=== PATIENT | male | born 1960 | race Caucasian/White ===

== ENCOUNTER 2022-06-18 15:15 | Inpatient (IN) | payer OTHER ==
[2022-06-18] MEDS ORDERED: Nitroglycerin 0.4 MG TAB (25 Tab Bottle) SL PRN (17:29)
[2022-06-18] MEDS ORDERED: hydrALAZINE 20 MG/ML VIAL SLOW IVP PRN (17:32)
[2022-06-18] MEDS ORDERED: Dextrose 5% in Water 1,000 ML IV PRN (17:46)
[2022-06-18] MEDS ORDERED: HumaLOG 300 UNITS/3 ML VIAL SC PRN (17:46)
[2022-06-18] MEDS ORDERED: Dextrose 50% Abboject 50 ML SYRINGE SLOW IVP PRN (17:46)
[2022-06-18] MEDS: Famotidine 20 MG TAB PO SCH (21:50)
[2022-06-18] MEDS: CO Q-10 CAPSULE 100 MG PO SCH (21:51)
[2022-06-18] MEDS: Rosuvastatin 20 MG TAB PO SCH (21:51)
[2022-06-19] MEDS: Levothyroxine Sodium 25 MCG TAB PO SCH (05:58)
[2022-06-19] MEDS: Levothyroxine Sodium 112 MCG TAB PO SCH (05:58)
[2022-06-19] MEDS: HumaLOG 300 UNITS/3 ML VIAL SC PRN ×2 (06:07→11:43)
[2022-06-19] MEDS ORDERED: Diazepam 5 MG TAB PO PRN (08:00)
[2022-06-19] MEDS ORDERED: Communication Order-Pharmacy FS SCH (08:00)
[2022-06-19] MEDS ORDERED: hydrALAZINE 20 MG/ML VIAL SLOW IVP PRN (08:02)
[2022-06-19] MEDS ORDERED: Famotidine 20 MG TAB PO SCH (09:00)
[2022-06-19] MEDS: hydrALAZINE 20 MG/ML VIAL SLOW IVP PRN ×2 (15:49→23:13)
[2022-06-19] MEDS: CO Q-10 CAPSULE 100 MG PO SCH (20:30)
[2022-06-19] MEDS: Rosuvastatin 20 MG TAB PO SCH (20:30)
[2022-06-19] MEDS: Famotidine 20 MG TAB PO SCH (20:31)
[2022-06-20 03:34] LABS: #Eosinphils 0.1 thou/uL (0.0-0.7); #Lymphocytes 2.9 thou/uL (1.20-3.40); #Monocytes 0.8 thou/uL (0.11-0.59); #Neutrophils 4.7 thou/uL (1.40-6.50); %Basophils 0.3 % (0.0-1.0); %Eosinophils 1.4 % (0.0-10.0); %Lymphocytes 33.8 % (21.0-51.0); %Monocytes 9.1 % (0.0-10.0); %Neutrophils 55.4 % (42.0-75.0); Hemoglobin 14.5 g/dL (14.0-18.0); Mean Corpuscular HGB CONC 33.8 g/dL (32.0-36.0); Mean Corpuscular Hemoglobin 32.6 pg (27.0-31.0); Mean Corpuscular Volume 96.4 fl (78.0-98.0); Mean Platelet Volume 6.6 fL (7.4-10.4); Platelet Count 207 10x3/uL (130-400); Red Blood Cell (RBC) Count 4.43 mill/uL (4.70-6.10); White Blood Cell (WBC) Count 8.5 10x3/uL (4.8-10.8)
[2022-06-20 03:51] LABS: Anion Gap 10 mmol/L (10-20); BUN (Urea Nitrogen) 24 mg/dL (8.4-25.7); Calc. Creatinine Clearance 101 mL/min (70-130); Calcium 9.6 mg/dL (7.8-10.44); Carbon Dioxide 23 mmol/L (23-31); Chloride 104 mmol/L (98-107); Estimated GFR 80; Glucose 162 mg/dL (80-115); Potassium 3.8 mmol/L (3.5-5.1); Sodium 133 mmol/L (136-145)
[2022-06-20] MEDS: Levothyroxine Sodium 112 MCG TAB PO SCH (06:29)
[2022-06-20] MEDS: Levothyroxine Sodium 25 MCG TAB PO SCH (06:29)
[2022-06-20] MEDS ORDERED: Lidocaine 1% MPF 2 ML VIAL ONE ×2 (10:03→10:21)
[2022-06-20] MEDS ORDERED: Heparin 10,000 UNITS/1 ML VIAL 30,000 UNITS in Sodium Chloride 0.9% 1,000 ML FS SCH (10:30)
[2022-06-20] MEDS ORDERED: Dexamethasone 4 mg/ml Vial ONE (10:30)
[2022-06-20] MEDS ORDERED: Bupivacaine HCl 0.5%/Epinephrine 1:200,000/PF 30 ml Vial ONE (10:31)
[2022-06-20] MEDS ORDERED: Albumin 5% 500 ML ONE (10:31)
[2022-06-20] MEDS ORDERED: CEFAZOLIN 2 GM VIAL ONE (11:07)
[2022-06-20] MEDS ORDERED: Sodium Chloride 0.9% 100 ML ONE (11:08)
[2022-06-20] MEDS ORDERED: fentaNYL PF 100 MCG/2 ML SYRINGE ONE (11:31)
[2022-06-20] MEDS ORDERED: Fentanyl 250 MCG/5 ML VIAL ONE ×2 (11:37→13:57)
[2022-06-20] MEDS ORDERED: Midazolam HCl 5 mg/5 ml Vial ONE ×2 (11:38→13:57)
[2022-06-20] MEDS ORDERED: Aminocaproic Acid 5 GM/20 ML VIAL ONE (11:43)
[2022-06-20] MEDS ORDERED: Cardioplegic Soln 1,000 ML BAG ONE (11:43)
[2022-06-20] MEDS ORDERED: Norepinephrine 4 MG/4 ML VIAL ONE (11:43)
[2022-06-20] MEDS ORDERED: Protamine Sulfate 250 MG/25 ML VIAL ONE (11:43)
[2022-06-20] MEDS ORDERED: Sodium Bicarb 50 MEQ/50 ML VIAL ONE (11:43)
[2022-06-20] MEDS ORDERED: Papaverine 60 MG/2 ML VIAL ONE (11:43)
[2022-06-20] MEDS ORDERED: Calcium Chloride 1 GM/10 ML Abboject SYRINGE ONE (11:43)
[2022-06-20] MEDS ORDERED: Mannitol 12.5 GM/50 ML ONE (11:43)
[2022-06-20] MEDS ORDERED: Heparin 5,000 UNITS/ML VIAL ONE (11:43)
[2022-06-20] MEDS ORDERED: Rocuronium Bromide 10 MG/ML (10ML VIAL) ONE (11:43)
[2022-06-20] MEDS ORDERED: Heparin 30,000 units/30 ml VIAL ONE (11:43)
[2022-06-20] MEDS ORDERED: Vancomycin 1 GM VIAL ONE (11:43)
[2022-06-20] MEDS ORDERED: Potassium Chloride 60 MEQ/30 ML VIAL ONE (11:43)
[2022-06-20] MEDS ORDERED: Thrombin 5000 UNITS/5 ML VIAL ONE (11:43)
[2022-06-20] MEDS ORDERED: Lidocaine 2% PF 100 mg/5 ml Syringe ONE (11:43)
[2022-06-20] MEDS ORDERED: Magnesium 5 GM/10 ML VIAL ONE (11:43)
[2022-06-20] MEDS ORDERED: Vecuronium 10 MG VIAL ONE (11:43)
[2022-06-20] MEDS ORDERED: Insulin Regular 300 UNITS/3 ML VIAL ONE (12:32)
[2022-06-20] MEDS ORDERED: Milrinone 10 MG/10 ML VIAL ONE (13:02)
[2022-06-20] MEDS ORDERED: Morphine 2 MG/ML VIAL SLOW IVP PRN (15:03)
[2022-06-20] MEDS ORDERED: traMADol HCl 50 MG TAB PO PRN (15:03)
[2022-06-20] MEDS ORDERED: Guaifenesin DM 100-10/5 ML UDCUP PO PRN (15:03)
[2022-06-20] MEDS ORDERED: Potassium Chloride 20 MEQ/100 ML PREMIX BAG IVPB PRN (15:03)
[2022-06-20] MEDS ORDERED: Ipratropium/Albuterol 3 ML NEB NEB PRN (15:03)
[2022-06-20] MEDS ORDERED: Fentanyl 100 MCG/2 ML VIAL SLOW IVP PRN (15:03)
[2022-06-20] MEDS ORDERED: Bisacodyl 10 MG SUPP PR PRN (15:03)
[2022-06-20] MEDS ORDERED: Bisacodyl 5 MG TAB PO PRN (15:03)
[2022-06-20] MEDS ORDERED: Acetaminophen 325 MG TAB PO PRN (15:03)
[2022-06-20] MEDS ORDERED: Ondansetron PF 4 MG/2 ML Vial IVP PRN (15:03)
[2022-06-20] MEDS ORDERED: Hetastarch 6% 500 ML 500 ML IVPB PRN (15:03)
[2022-06-20] MEDS ORDERED: NOREPINEPHRINE 8 MG/250 ML-D5W 250 ML IVPB PRN (15:03)
[2022-06-20] MEDS ORDERED: Potassium Chloride 20 MEQ in Lactated Ringer's 1,000 ML IV SCH (15:03)
[2022-06-20] MEDS ORDERED: hydrALAZINE 20 MG/ML VIAL SLOW IVP PRN (15:03)
[2022-06-20] MEDS ORDERED: niCARdipine 25 MG in Sodium Chloride 0.9% 250 ML 250 ML IVPB PRN (15:03)
[2022-06-20] MEDS ORDERED: Mag-Al 1200 mg/1200 mg/30 ML UDCUP PO PRN (15:03)
[2022-06-20] MEDS ORDERED: Post-Op Insulin Drip Protocol IVPB ONE (15:03)
[2022-06-20] MEDS ORDERED: Dextrose 50% Abboject 50 ML SYRINGE SLOW IVP PRN (15:15)
[2022-06-20] MEDS ORDERED: HUMULIN R 100 UNITS in Sodium Chloride 0.9% 100 ML IVPB SCH (15:15)
[2022-06-20] MEDS ORDERED: Insulin Regular 300 UNITS/3 ML VIAL SC PRN (15:15)
[2022-06-20] MEDS ORDERED: Dextrose 5% in Water 1,000 ML IV PRN (15:15)
[2022-06-20 15:37] LABS: Actual Bicarbonate (HCO3a) 25.5 mEq/L (22-28); Base Excess (BEa) 0.4 mEq/L (-2.0 to +3.0); Calcium, Ionized (arterial) 1.12 mmol/L (1.12-1.30); Carboxyhemoglobin (COHb) 0.2 gm% (0.0-3.0); Hemoglobin (Hb) 11.8 g/dL (14.0-18.0); O2 Tension (PaO2), arterial 100.8 mmHg (> 80.0); pH, Arterial 7.39 (7.35-7.45)
[2022-06-20 15:37] LABS: #Eosinphils 0.2 thou/uL (0.0-0.7); #Lymphocytes 3.5 thou/uL (1.20-3.40); #Monocytes 0.9 thou/uL (0.11-0.59); #Neutrophils 6.6 thou/uL (1.40-6.50); %Basophils 0.3 % (0.0-1.0); %Eosinophils 1.4 % (0.0-10.0); %Lymphocytes 31.1 % (21.0-51.0); %Monocytes 8.1 % (0.0-10.0); %Neutrophils 59.1 % (42.0-75.0); Hemoglobin 10.9 g/dL (14.0-18.0); Mean Corpuscular HGB CONC 34.8 g/dL (32.0-36.0); Mean Corpuscular Hemoglobin 33.9 pg (27.0-31.0); Mean Corpuscular Volume 97.4 fl (78.0-98.0); Mean Platelet Volume 6.5 fL (7.4-10.4); Platelet Count 182 10x3/uL (130-400); RBC Distribution Width 11.8 % (11.5-14.5); Red Blood Cell (RBC) Count 3.23 mill/uL (4.70-6.10); White Blood Cell (WBC) Count 11.1 10x3/uL (4.8-10.8)
[2022-06-20] MEDS: Fentanyl 100 MCG/2 ML VIAL SLOW IVP PRN ×2 (15:39→19:38)
[2022-06-20 15:41] LABS: Puncture Site A-Line
[2022-06-20 15:43] LABS: INR-International Normal Ratio 1.3; PTT 30.5 sec (22.9-36.1); Prothrombin Time 16.6 sec (12.0-14.7)
[2022-06-20 16:33] LABS: Anion Gap 8 mmol/L (10-20); BUN (Urea Nitrogen) 21 mg/dL (8.4-25.7); Calc. Creatinine Clearance 101 mL/min (70-130); Calcium 7.8 mg/dL (7.8-10.44); Carbon Dioxide 24 mmol/L (23-31); Chloride 108 mmol/L (98-107); Estimated GFR 85; Glucose 125 mg/dL (80-115); Sodium 136 mmol/L (136-145)
[2022-06-20] MEDS: Ketorolac Tromethamine 30 MG/ML VIAL IVP SCH ×2 (17:01→23:08)
[2022-06-20 19:21] LABS: Actual Bicarbonate (HCO3a) 23.7 mEq/L (22-28); Base Excess (BEa) -0.9 mEq/L (-2.0 to +3.0); CO2 Tension 39.2 mmHg (35.0-45.0); Calcium, Ionized (arterial) 1.09 mmol/L (1.12-1.30); Carboxyhemoglobin (COHb) 0.3 gm% (0.0-3.0); Hemoglobin (Hb) 10.7 g/dL (14.0-18.0); O2 Tension (PaO2), arterial 118.8 mmHg (> 80.0); Potassium - ABG Lab 4.16 mmol/L (3.70-5.30)
[2022-06-20 19:28] LABS: Puncture Site ALINE
[2022-06-20] MEDS: CEFAZOLIN 2 GM in Sodium Chloride 0.9% 100 ML IVPB SCH (20:05)
[2022-06-20] MEDS ORDERED: Famotidine/PF 20 mg/2ml Vial SLOW IVP SCH (21:00)
[2022-06-20 23:51] LABS: Potassium 4.6 mmol/L (3.5-5.1)
[2022-06-21] MEDS: Fentanyl 100 MCG/2 ML VIAL SLOW IVP PRN (02:27)
[2022-06-21] MEDS: CEFAZOLIN 2 GM in Sodium Chloride 0.9% 100 ML IVPB SCH ×2 (03:08→12:00)
[2022-06-21 04:50] LABS: #Lymphocytes 0.9 thou/uL (1.20-3.40); #Monocytes 0.7 thou/uL (0.11-0.59); #Neutrophils 4.4 thou/uL (1.40-6.50); %Basophils 0.2 % (0.0-1.0); %Eosinophils 0.1 % (0.0-10.0); %Lymphocytes 15.7 % (21.0-51.0); %Monocytes 10.9 % (0.0-10.0); %Neutrophils 73.1 % (42.0-75.0); Hemoglobin 9.8 g/dL (14.0-18.0); Mean Corpuscular Hemoglobin 35.2 pg (27.0-31.0); Mean Corpuscular Volume 97.9 fl (78.0-98.0); Platelet Count 152 10x3/uL (130-400); Red Blood Cell (RBC) Count 2.79 mill/uL (4.70-6.10)
[2022-06-21 05:08] LABS: Anion Gap 12 mmol/L (10-20); BUN (Urea Nitrogen) 22 mg/dL (8.4-25.7); Calc. Creatinine Clearance 96 mL/min (70-130); Calcium 7.8 mg/dL (7.8-10.44); Carbon Dioxide 20 mmol/L (23-31); Chloride 110 mmol/L (98-107); Estimated GFR 80; Glucose 123 mg/dL (80-115); Potassium 4.4 mmol/L (3.5-5.1); Sodium 138 mmol/L (136-145)
[2022-06-21] MEDS: Ketorolac Tromethamine 30 MG/ML VIAL IVP SCH ×3 (05:39→17:42)
[2022-06-21] MEDS: Levothyroxine Sodium 112 MCG TAB PO SCH (05:39)
[2022-06-21] MEDS: traMADol HCl 50 MG TAB PO PRN ×2 (05:39→22:07)
[2022-06-21] MEDS: Levothyroxine Sodium 25 MCG TAB PO SCH (05:39)
[2022-06-21] MEDS ORDERED: Dextrose 5% in Water 1,000 ML IV PRN ×2 (07:21→14:45)
[2022-06-21] MEDS ORDERED: Dextrose 50% Abboject 50 ML SYRINGE SLOW IVP PRN ×2 (07:21→14:45)
[2022-06-21] MEDS: Magnesium 2 GM/50 ML(in water) 2 GM in Premix Bag 1 BAG IVPB SCH (08:36)
[2022-06-21] MEDS ORDERED: Non-Formulary Item 1 EACH (Levothyroxine Sodium [Synthroid] 137 MCG Tablet) PO SCH (09:00)
[2022-06-21] MEDS ORDERED: Aspirin 325 MG TAB PO SCH (09:00)
[2022-06-21] MEDS: HumaLOG 300 UNITS/3 ML VIAL SC PRN ×2 (11:15→16:25)
[2022-06-21] MEDS ORDERED: Zolpidem Tartrate 5 MG TAB PO PRN (13:37)
[2022-06-21] MEDS ORDERED: Bisacodyl 10 MG SUPP PR PRN (13:37)
[2022-06-21] MEDS ORDERED: diphenhydrAMINE 25 MG CAP PO PRN (13:37)
[2022-06-21] MEDS ORDERED: Mineral Oil ENEMA PR PRN (13:37)
[2022-06-21] MEDS ORDERED: Mag-Al 1200 mg/1200 mg/30 ML UDCUP PO PRN (13:37)
[2022-06-21] MEDS ORDERED: Milk Of Magnesia 30 ML UDCUP PO PRN (13:37)
[2022-06-21] MEDS ORDERED: Guaifenesin DM 100-10/5 ML UDCUP PO PRN (13:37)
[2022-06-21] MEDS ORDERED: Bisacodyl 5 MG TAB PO PRN (13:37)
[2022-06-21] MEDS ORDERED: FLU VACC QS2022-23(6MOS UP)/PF 60 MCG/0.5 ML SYRINGE IM ONE (17:45)
[2022-06-21] MEDS: Rosuvastatin 20 MG TAB PO SCH (20:46)
[2022-06-21] MEDS: Insulin Regular 300 UNITS/3 ML VIAL SC PRN (20:47)
[2022-06-22] MEDS: Ketorolac Tromethamine 30 MG/ML VIAL IVP SCH ×4 (00:31→16:53)
[2022-06-22 05:02] VITALS: BMI 31.9
[2022-06-22] MEDS: Levothyroxine Sodium 112 MCG TAB PO SCH (05:26)
[2022-06-22] MEDS: Levothyroxine Sodium 25 MCG TAB PO SCH (05:26)
[2022-06-22] MEDS: Insulin Regular 300 UNITS/3 ML VIAL SC PRN (05:34)
[2022-06-22] MEDS ORDERED: Carvedilol 3.125 MG TAB PO SCH (08:00)
[2022-06-22] MEDS: Icosapent Ethyl 1 GM CAPSULE PO SCH ×2 (08:24→21:57)
[2022-06-22] MEDS: Magnesium 2 GM/50 ML(in water) 2 GM in Premix Bag 1 BAG IVPB SCH (08:24)
[2022-06-22] MEDS: Clopidogrel Bisulfate 75 MG TAB PO SCH (08:24)
[2022-06-22] MEDS: Aspirin 81 mg Enteric Coated Tablet PO SCH (08:25)
[2022-06-22 11:01] LABS: Analyzer IN Cardio OR; Base Excess (BEa) -1.3 mEq/L (-2.0 to +3.0); CO2 Tension 37.4 mmHg (35.0-45.0); Calcium, Ionized (arterial) 1.17 mmol/L (1.12-1.30); Carboxyhemoglobin (COHb) 1.1 gm% (0.0-3.0); Hemoglobin (Hb) 14.8 g/dL (14.0-18.0); O2 Tension (PaO2), arterial 199.2 mmHg (> 80.0); Potassium - ABG Lab 3.92 mmol/L (3.70-5.30); pH, Arterial 7.41 (7.35-7.45)
[2022-06-22 11:04] LABS: Actual Bicarbonate (HCO3a) 24.1 mEq/L (22-28); Analyzer IN Cardio OR; Base Excess (BEa) -1.2 mEq/L (-2.0 to +3.0); CO2 Tension 42.8 mmHg (35.0-45.0); Calcium, Ionized (arterial) 0.99 mmol/L (1.12-1.30); Carboxyhemoglobin (COHb) 0.3 gm% (0.0-3.0); Hemoglobin (Hb) 10.3 g/dL (14.0-18.0); O2 Tension (PaO2), arterial 302.7 mmHg (> 80.0); Potassium - ABG Lab 4.41 mmol/L (3.70-5.30); pH, Arterial 7.37 (7.35-7.45)
[2022-06-22 11:04] LABS: Actual Bicarbonate (HCO3a) 21.6 mEq/L (22-28); Analyzer IN Cardio OR; Base Excess (BEa) -3.3 mEq/L (-2.0 to +3.0); CO2 Tension 38.1 mmHg (35.0-45.0); Calcium, Ionized (arterial) 1.11 mmol/L (1.12-1.30); Carboxyhemoglobin (COHb) 0.4 gm% (0.0-3.0); Hemoglobin (Hb) 12.9 g/dL (14.0-18.0); O2 Tension (PaO2), arterial 444.4 mmHg (> 80.0); Potassium - ABG Lab 3.51 mmol/L (3.70-5.30); pH, Arterial 7.37 (7.35-7.45)
[2022-06-22 11:05] LABS: Actual Bicarbonate (HCO3a) 20.2 mEq/L (22-28); Analyzer IN Cardio OR; CO2 Tension 33.1 mmHg (35.0-45.0); Calcium, Ionized (arterial) 1.07 mmol/L (1.12-1.30); Carboxyhemoglobin (COHb) 0.2 gm% (0.0-3.0); Hemoglobin (Hb) 8.6 g/dL (14.0-18.0); O2 Tension (PaO2), arterial 97.5 mmHg (> 80.0); Potassium - ABG Lab 3.42 mmol/L (3.70-5.30)
[2022-06-22 11:05] LABS: Actual Bicarbonate (HCO3a) 25.9 mEq/L (22-28); Analyzer IN Cardio OR; Base Excess (BEa) 0.7 mEq/L (-2.0 to +3.0); CO2 Tension 44.1 mmHg (35.0-45.0); Calcium, Ionized (arterial) 0.98 mmol/L (1.12-1.30); Hemoglobin (Hb) 9.6 g/dL (14.0-18.0); O2 Tension (PaO2), arterial 284.3 mmHg (> 80.0); pH, Arterial 7.39 (7.35-7.45)
[2022-06-22 11:05] LABS: Puncture Site Arterial Line
[2022-06-22 11:06] LABS: Puncture Site Arterial Line
[2022-06-22 11:06] LABS: Puncture Site Arterial Line
[2022-06-22 11:07] LABS: Puncture Site Arterial Line
[2022-06-22 11:07] LABS: Puncture Site Arterial Line
[2022-06-22] MEDS: metFORMIN 500 MG TAB PO SCH (16:53)
[2022-06-22] MEDS: Rosuvastatin 20 MG TAB PO SCH (21:57)
[2022-06-23] MEDS: Ketorolac Tromethamine 30 MG/ML VIAL IVP SCH ×2 (00:19→06:06)
[2022-06-23] MEDS: Levothyroxine Sodium 25 MCG TAB PO SCH (06:06)
[2022-06-23] MEDS: Levothyroxine Sodium 112 MCG TAB PO SCH (06:07)
[2022-06-23] MEDS ORDERED: Empagliflozin 10 MG TAB PO SCH (09:00)
[2022-06-23 09:05] VITALS: BP 130/72; TEMP 97.8
[2022-06-23] MEDS: Icosapent Ethyl 1 GM CAPSULE PO SCH (09:06)
[2022-06-23] MEDS: Aspirin 81 mg Enteric Coated Tablet PO SCH (09:06)
[2022-06-23] MEDS: Clopidogrel Bisulfate 75 MG TAB PO SCH (09:07)
[2022-06-23] MEDS: metFORMIN 500 MG TAB PO SCH (09:07)
== END 2022-06-23 11:45 | disposition home or self-care (01) | DRG 235 ==
LOC: CCU 15:15 → 2NO 06-21 16:56
PROVIDERS: ADMIT Internal Medicine; ATTEND Family Medicine
PROC: 02100Z9 Bypass Coronary Artery, One Artery from Left Internal Mammary, Open Approach (ICD-10-PCS; principal; 2022-06-20)
PROC: 021209W Bypass Coronary Artery, Three Arteries from Aorta with Autologous Venous Tissue, Open Approach (ICD-10-PCS; 2022-06-20)
PROC: 06BQ4ZZ Excision of Left Saphenous Vein, Percutaneous Endoscopic Approach (ICD-10-PCS; 2022-06-20)
PROC: 5A1221Z Performance of Cardiac Output, Continuous (ICD-10-PCS; 2022-06-20)
PROC: 02L70CK Occlusion of Left Atrial Appendage with Extraluminal Device, Open Approach (ICD-10-PCS; 2022-06-20)
PROC: 30233J1 Transfusion of Nonautologous Serum Albumin into Peripheral Vein, Percutaneous Approach (ICD-10-PCS; 2022-06-20)
DX: I21.4 Non-ST elevation (NSTEMI) myocardial infarction (principal); J96.01 Acute respiratory failure with hypoxia; I25.10 Atherosclerotic heart disease of native coronary artery without angina pectoris; E78.5 Hyperlipidemia, unspecified; E03.9 Hypothyroidism, unspecified; J45.909 Unspecified asthma, uncomplicated; N18.9 Chronic kidney disease, unspecified; E11.22 Type 2 diabetes mellitus with diabetic chronic kidney disease; I12.9 Hypertensive chronic kidney disease with stage 1 through stage 4 chronic kidney disease, or unspecified chronic kidney disease; Z20.822 Contact with and (suspected) exposure to COVID-19; Z79.890 Hormone replacement therapy; Z79.84 Long term (current) use of oral hypoglycemic drugs; Z79.899 Other long term (current) drug therapy; Z98.890 Other specified postprocedural states; Z82.49 Family history of ischemic heart disease and other diseases of the circulatory system; Z83.79 Family history of other diseases of the digestive system
CPT/HCPCS: 36415; 36416; 36430; 71045; 80048; 82805; 85025; 85610; 85730; 86850; 86900; 86901; 93005; 93010; 93798; 94002; 94150; 94760; 97139; C1751; C1776; J0360; J1100; J1642; J1644; J1815; J1885; J2001; J2150; J2250; J2260; J2272; J2440; J2720; J3010; J3370; J3475; J3480; J3490; J7120; P9045; S0017; S0028